=== PATIENT | female | born 1950 | race Caucasian/White ===

== ENCOUNTER 2017-06-22 17:17 | Inpatient (IN) | payer MEDICARE ==
[~2017-06-22] VITALS: Ht 152.4 cm; Wt 82.5 kg
[~2017-06-22 17:17] MED LIST: ATIVAN0.5 MG PO; CLEOCIN HCL300 MG PO; ELAVIL25 MG PO; GLIMEPIRIDE4 MG PO; GLUCOPHAGE1000 MG PO; GLUCOPHAGE500 MG PO; HYDROCODONE-APA1 TAB PO; LANTUS INSULIN10 ML SC; LEVAQUIN500 MG PO; NASONEX NASAL S17 GM NS; NEURONTIN800 MG PO; NICODERM C1 PATCH .1 TRANSDERM; PHENERGAN25 M1 PO; PREDNISONE20 MG PO; PROVENTIL HFA6.7 GM INH; REQUIP0.5 MG PO; TESSALON PERLE100 MG PO; VENTOLIN HFA18 GM INH; ZESTRIL20 MG PO
[2017-06-22 18:20] LABS: APPEARANCE HAZY (CLEAR); BILIRUBIN NEGATIVE (NEGATIVE); COLOR STRAW (YELLOW); GLUCOSE 1000 mg/dL (NEGATIVE); KETONE MODERATE mg/dL (NEGATIVE); LEUKOCYTE ESTERASE NEGATIVE (NEGATIVE); NITRITE NEGATIVE (NEGATIVE); PROTEIN 1+ mg/dL (NEGATIVE); SPECIFIC GRAVITY 1.015 (1.005-1.020); UROBILINOGEN NORMAL (NORMAL)
[2017-06-22 18:24] LABS: AMORPHOUS SEDIMENT >1+ /lpf (NONE SEEN); BACTERIA FEW /hpf (NONE SEEN); EPITHELIAL CELLS RARE /hpf (0-5); RED CELLS - URINE RARE /hpf (0-5); WHITE CELLS - URINE RARE /hpf (0-5)
[2017-06-22 18:44] LABS: BASOPHILS 0 % (0-2); EOSINOPHILS 0 % (0-7); HEMATOCRIT 37.3 % (36.0-48.0); HEMOGLOBIN 12.6 g/dL (12-16); IMMATURE GRANULOCYTES 0.2 % (0-5); LYMPHOCYTES 10.1 % (15-50); MCH 30.1 pg (26.0-34.0); MCHC 33.8 g/dL (31.0-37.0); MEAN PLATELET VOLUME 10.6 fL (7.4-10.4); MONOCYTES 2.8 % (2-11); NEUTROPHILS 86.9 % (40-80); PLATELET COUNT 167 10x3/uL (130-400); RBC 4.19 10x6/uL (4.00-5.40); RDW 13.1 % (11.5-14.5); WBC 10.1 10x3/uL (4.8-10.8)
[2017-06-22 19:07] LABS: ALBUMIN 1.8 g/dL (3.4-5.0); ALKALINE PHOSPHATASE 78 U/L (46-116); ALT (SGPT) 10 U/L (10-68); AMYLASE - SERUM 22 U/L (25-115); CARBON DIOXIDE 15.6 mmol/L (21.0-32.0); CHLORIDE - SERUM 94 mmol/L (98-107); CKMB 0.9 U/L (0.0-3.6); CREATINE KINASE 45 UL (21-215); CREATININE - SERUM 1.6 mg/dL (0.6-1.3); LIPASE 134 U/L (73-393); MAGNESIUM - SERUM 1.4 mg/dL (1.8-2.4); POTASSIUM - SERUM 4.2 mmol/L (3.5-5.1); PROTEIN - SERUM 3.9 g/dL (6.4-8.2); SODIUM 127 mmol/L (136-145); TROPONIN-I 0.027 ng/mL (0.000-0.060); UREA NITROGEN 64 mg/dL (7-18); eGFR NON AFRICAN AMERICAN 34 mL/min (90-120)
[2017-06-22 19:08] LABS: CALC OSMOLALITY 310 mosm/kg (275-300)
[2017-06-22 19:10] LABS: GLUCOSE 777 mg/dL (74-106)
[2017-06-22 21:30] VITALS: BP 115/60
--- NOTE | 2017-06-22 21:38 | NUR ---
2138: FSBS reading >HIGH. Serum glucose ordered. Insulin gtt titrated as per DKA protocols. NS from ER infusing at 200 cc/hr changed to 125 cc/hr at this time.
[2017-06-22 21:41] VITALS: BP 115/60; BMI 34.8
[2017-06-22 22:00] VITALS: BP 92/44
[2017-06-22 22:45] LABS: ALKALINE PHOSPHATASE 111 U/L (46-116); BILIRUBIN - TOTAL 0.48 mg/dL (0.2-1.3); CHLORIDE - SERUM 87 mmol/L (98-107); CREATINE KINASE 53 UL (21-215); PHOSPHOROUS 4.7 mg/dL (2.5-4.9); SODIUM 121 mmol/L (136-145); UREA NITROGEN 74 mg/dL (7-18)
[2017-06-22 22:50] VITALS: BP 115/60
[2017-06-22 22:52] LABS: CALC OSMOLALITY 294 mosm/kg (275-300); CARBON DIOXIDE 21.7 mmol/L (21.0-32.0); CREATININE - SERUM 2.2 mg/dL (0.6-1.3); GLUCOSE 616 mg/dL (74-106); MAGNESIUM - SERUM 2.7 mg/dL (1.8-2.4); eGFR NON AFRICAN AMERICAN 24 mL/min (90-120)
[2017-06-22 22:53] LABS: ALBUMIN 2.6 g/dL (3.4-5.0); ALT (SGPT) 15 U/L (10-68); CALCIUM 8.2 mg/dL (8.5-10.1); PROTEIN - SERUM 6.1 g/dL (6.4-8.2); TROPONIN-I < 0.017 ng/mL (0.000-0.060)
[2017-06-22 23:00] VITALS: BP 90/47
--- NOTE | 2017-06-22 23:20 | NUR ---
PT ARRIVED VIA BED WITH ER STAFF. LETHARGIC AND DISORIENTED. UNABLE TO FOLLOW COMMNANDS OR ANSWER QUESTIONS. REPEATS THE WORD "YEAH" RANDOMLY. S1S2 HEARD, SINUS RHYTHM ON MONITOR WITH OCCASIONAL PAC. PERIPHERAL PULSES PRESENT. LUNG SOUNDS DIMINISHED, RESPIRATIONS UNLABORED AT THIS TIME. SPO2 96, 3L O2 VIA NC. BOWEL SOUNDS ACTIVE. GOVEA CATH INTACT WITH YELLOW URINE PRESENT. STANLEY CARE DONE AT THIS TIME WITH PARTIAL LINEN CHANGE. INSULING GTT INFUSING @ 4UNITS UPON ARRIVAL, WILL TITRATE ACCORDING TO DKA PROTOCOL. PT PULLING AT LINES THAT ARE MEDICALLY NECESSARY, RT WRIST RESTRAINT IN USE PER ORDER. ROOM VISIBLE FROM NURSES STATION. BED ALARM ON. WILL CONTINUE TO MONITOR.
--- NOTE | 2017-06-22 23:26 | NUR ---
PT UNRESPONSIVE, DOES NOT AROUSE TO VOICE OR PAINFUL STIMULI. HR 58, SBP 80. JUNCTIONAL RHYTHM ON MONITOR. NOTIFIED ER PHYSICIAN. HEAD CT ORDERED. WILL CONTINUE TO TITRATE INSULIN GTT PER DKA PROTOCOL.
[2017-06-23] VITALS (38 sets, daily range): BP systolic 75–158; BP diastolic 40–82
--- NOTE | 2017-06-23 01:12 | NUR ---
DR. BEL LEONARDO.
[2017-06-23 02:41] LABS: CKMB 1.2 U/L (0.0-3.6); CREATINE KINASE 54 UL (21-215); GLUCOSE 203 mg/dL (74-106); POTASSIUM - SERUM 4.1 mmol/L (3.5-5.1); TROPONIN-I < 0.017 ng/mL (0.000-0.060)
[2017-06-23 03:06] LABS: ALBUMIN 2.6 g/dL (3.4-5.0); CALCIUM 8.7 mg/dL (8.5-10.1)
--- NOTE | 2017-06-23 03:30 | NUR ---
PT REMAINS UNRESPONSIVE, WITH OCCASIONAL MOVEMENT X4 EXTREMITIES AGAINST GRAVITY BUT NOT ON COMMAND. VSS, LEVOPHED GTT INFUSING. INSULIN GTT INFUSING, BS CURRENTLY TRENDING DOWN. PT REPOSITIONED IN BED. NO S/S OF PAIN AT THIS TIME. ROOM VISIBLE FROM NURSES STATION. BED ALARM ON. WILL CONTINUE TO MONITOR.
--- NOTE | 2017-06-23 05:30 | NUR ---
REC'D CALLBACK FROM ISATU STAPLES REC'D.
--- NOTE | 2017-06-23 05:52 | NUR ---
PT AROUSING, BEGINNING TO TALK. ANSWERS QUESTIONS INCONSISTANTLY. ORIENTED TO PERSON AND PLACE. COOPERATIVE AND FOLLOWING COMMANDS. VSS, WEANING OFF VASOPRESSORS AND TITRATING INSULIN GTT. NO C/O PAIN. ROOM VISIBLE FROM NURSES STATION. BED ALARM ON. CALL LIGHT WITHIN PT REACH. CPOC.
--- NOTE | 2017-06-23 07:31 | NUR ---
SPOKE WITH DR. YOST FOR CONSULT.
[2017-06-23 08:43] LABS: BASOPHILS 0.1 % (0-2); EOSINOPHILS 0 % (0-7); IMMATURE GRANULOCYTES 0.2 % (0-5); LYMPHOCYTES 12.6 % (15-50); MCH 30.5 pg (26.0-34.0); MCHC 35.7 g/dL (31.0-37.0); MEAN PLATELET VOLUME 10.4 fL (7.4-10.4); MONOCYTES 12.7 % (2-11); NEUTROPHILS 74.4 % (40-80); PLATELET COUNT 169 10x3/uL (130-400); RDW 13.1 % (11.5-14.5)
[2017-06-23 08:52] LABS: WBC 13.2 10x3/uL (4.8-10.8)
[2017-06-23 08:53] LABS: HEMATOCRIT 44.8 % (36.0-48.0); MCV 85.3 fL (80.0-100.0); RBC 5.25 10x6/uL (4.00-5.40)
[2017-06-23 09:13] LABS: CREATINE KINASE 70 UL (21-215)
[2017-06-23 09:18] LABS: TROPONIN-I < 0.017 ng/mL (0.000-0.060)
[2017-06-23 10:40] LABS: ANION GAP 19.6 mmol/L (8-16); CALCIUM 8.1 mg/dL (8.5-10.1); CARBON DIOXIDE 19.9 mmol/L (21.0-32.0); CREATININE - SERUM 1.3 mg/dL (0.6-1.3); MAGNESIUM - SERUM 2.4 mg/dL (1.8-2.4); PHOSPHOROUS 3.2 mg/dL (2.5-4.9); POTASSIUM - SERUM 5.5 mmol/L (3.5-5.1)
--- NOTE | 2017-06-23 12:15 | NUR ---
[employer]IONAL ACCOUNT DIRECTOR PAGED THROUGH ANSWERING SERVICE FOR CONSULT.
--- NOTE | 2017-06-23 14:40 | NUR ---
REMAINS ASLEEP. NO NEEDS.
--- NOTE | 2017-06-23 15:28 | NUR ---
PT'S DAUGHTER HERE TO VISIT. STATES HER MOTHER HAS A HISTORY OF NOT TAKING HER MEDICATIONS DIRECTED.
--- NOTE | 2017-06-23 16:00 | NUR ---
HAIR SHAMPOOED BATH GIVEN. LINENS CHANGED.
--- NOTE | 2017-06-23 19:30 | NUR ---
RECEIVED CARE OF PT, ASSESSMENT PER FLOWSHEET. PT DISORIENTED TO TIME, ON 3L NC, BREATH SOUNDS DIMINISHED IN BASES, PPP, HR SR WITH FREQUENT PAC'S AT 90 ON CM, GOVEA CATH PATENT AND DRAINING YELLOW URINE, ASSISTED PT TO COMFORTABLE POSITION, DENIES ANY OTHER NEEDS, WILL MONITOR.
--- NOTE | 2017-06-23 20:53 | NUR ---
PT C/O NAUSEA, PRN 4MG ZOFRAN ADMINISTERED VIA SIVP PER MD ORDER, WILL MONITOR FOR DESIRED EFFECT.
--- NOTE | 2017-06-23 21:30 | NUR ---
NO VISITORS PRESENT AT THIS TIME, ASSISTED PT TO COMFORTABLE POSITION, VSS.
--- NOTE | 2017-06-23 23:15 | NUR ---
REASSESSMENT PER FLOWSHEET, NO ACUTE CHANGES NOTED AT THIS TIME. HR SR WITH FREQUENT PAC'S ON CM, BED LOW, CALL LIGHT IN REACH.
[2017-06-24] VITALS (12 sets, daily range): BP systolic 105–167; BP diastolic 58–93; Ht 152.4 cm; Wt 82.5 kg
--- NOTE | 2017-06-24 01:52 | NUR ---
PT RESTING IN BED WITH EYES CLOSED, BREATHING EVEN AND UNLABORED, VSS.
--- NOTE | 2017-06-24 03:30 | NUR ---
REASSESSMENT PER FLOWSHEET, PT CONTINUES TO BE DISORIENTED TO TIME, HR SR WITH PACS ON CM, VSS, POSITIONED FOR COMFORT.
--- NOTE | 2017-06-24 03:30 | NUR ---
PT C/O NAUSEA, PRN ZOFRAN 4MG ADMINISTERED PER REQUEST VIA SIVP.
[2017-06-24 03:33] LABS: BASOPHILS 0.1 % (0-2); EOSINOPHILS 0 % (0-7); HEMATOCRIT 41.6 % (36.0-48.0); HEMOGLOBIN 14.1 g/dL (12-16); IMMATURE GRANULOCYTES 0.2 % (0-5); MCH 30.3 pg (26.0-34.0); MCHC 33.9 g/dL (31.0-37.0); MEAN PLATELET VOLUME 9.9 fL (7.4-10.4); MONOCYTES 10.2 % (2-11); NEUTROPHILS 73.5 % (40-80); PLATELET COUNT 184 10x3/uL (130-400); RBC 4.66 10x6/uL (4.00-5.40); RDW 13.4 % (11.5-14.5)
[2017-06-24 03:36] LABS: MCV 89.3 fL (80.0-100.0); WBC 8.9 10x3/uL (4.8-10.8)
[2017-06-24 03:59] LABS: ALBUMIN 2.2 g/dL (3.4-5.0); ANION GAP 11.2 mmol/L (8-16); BILIRUBIN - TOTAL 0.33 mg/dL (0.2-1.3); CALCIUM 7.8 mg/dL (8.5-10.1); MAGNESIUM - SERUM 2.1 mg/dL (1.8-2.4); PHOSPHOROUS 2.3 mg/dL (2.5-4.9); POTASSIUM - SERUM 4.2 mmol/L (3.5-5.1); PROTEIN - SERUM 5.7 g/dL (6.4-8.2); THYROID STIMULATING HORMONE 0.48 uIU/mL (0.36-3.74)
[2017-06-24 06:14] LABS: PROTEIN - URINE 48.9 mg/dL (0.0-11.9)
--- NOTE | 2017-06-24 06:14 | NUR ---
NO VISITORS PRESENT AT THIS TIME, PT DOING INCENTIVE SPIROMETRY INDEPENDENTLY, VSS, CALL LIGHT IN REACH.
--- NOTE | 2017-06-24 07:30 | NUR ---
SHIFT REPORT RECEIVED. ASSESSMENT COMPLETE. SEE FLOWSHEET FOR DETAILS. PT AWAKE, C/O HEADACHE AND PAIN IN UPPER ABDOMEN. SAYS SHE DOESN'T NORMALLY HAVE HEADACHES WHEN ASKED, AND SAYS LAST BOWEL MOVEMENT WAS YESTERDAY.
--- NOTE | 2017-06-24 10:43 | NUR ---
PT GIVEN BED BATH. GOVEA CARE PROVIDED. HAIR DETANGLED AND BRAIDED. CLEAN LINENS PLACED ON BED. CLEAN GOWN PLACED ON PATIENT. IS NOW UP IN CHAIR AT BEDSIDE WITH MINIMAL TRANSFER ASSIST.
--- NOTE | 2017-06-24 11:01 | NUR ---
WHEN CLEANING UP PATIENT AND HER ROOM FOUND A GOLD RING WITH 4 STONES IN THE SETTING ON HER BEDSIDE STAND. STONES WERE: PURPLE, YELLOW, PINK AND BLUE. ALSO A PAIR OF LIGHTENING BOLT EARRINGS AND ONE BACK. PLACED IN A CLEAR BAGGIE WITH PATIENT LABEL AND PUT IN CASSETTE.
--- NOTE | 2017-06-24 11:46 | NUR ---
GOVEA REMOVED PER DR REYNAGA INSTRUCTIONS, TIP INTACT. NORMS PROVIDED.
--- NOTE | 2017-06-24 11:53 | NUR ---
FOLLOW UP APPOINTMENT MADE WITH DR ESQUIVEL ON JUL 01 AT 2:45PM
--- NOTE | 2017-06-24 12:40 | NUR ---
PAGED DR STAPLES ABOUT DISCHARGE MEDICATIONS. PT HAD DUPLICATE METFORMIN ORDER, INSULIN ORDER AND AMARYL ORDER. ASKED FOR CLARIFICATION ON WHICH MEDICATIONS PT SHOULD CONTINUE AND WHAT TO HOLD SINCE MULTIPLE ANTI-DIABETICS ON JAN. SHE ASKED FOR THE AMARYL TO BE STOPPED, D/C THE DUPLICATE METFORMIN AND TO CONTINUE ITS USE FOR HOME AND TO CONTINUE LANTUS.
--- NOTE | 2017-06-24 12:55 | NUR ---
SPOKE WITH PHARMACIST AT [facility] TO CLARIFY ANTI-DIABETIC MEDICATIONS. SEKOU WITH CASE MANAGEMENT HAD CALLED HER TO GO OVER THE PATIENT'S MEDICATIONS TO SEE WHEN LAST FILLED AND COST SINCE PT DAUGHTER SAYS PT IS PICKING THEM UP DUE TO COST. PT HAD ORDER FOR 45 UNITS LANTUS BID THAT WAS NEVER FILLED. CHANGED PRESCRIPTION TO 20UNITS BID FOR A ONE MONTH SUPPLY UNTIL PATIENT SEES DR ESQUIVEL AT FOLLOW UP. ALSO A ONE MONTH SUPPLY OF METFORMIN 1000MG BID SINCE PATIENT HAS NOT FILLED HER PRESCRIPTION SINCE 2015. CASE MANAGEMENT IN PATIENT ROOM AT THIS TIME SPEAKING WITH HER ABOUT HER MEDICATIONS.
--- NOTE | 2017-06-24 13:15 | NUR ---
* Is the patient Alert and Oriented? Yes 0 * How many steps to enter\exit or inside your home? 0 0 * PCP Dr. Chauhan 0 * Pharmacy [facility] in [place] 0 * Preadmission Environment Home Alone 0 * ADLs Independent 0 * Equipment Cane Rolling Walker 0 * List name and contact numbers for known caregivers / representatives who currently or will assist patient after discharge: Daughter - Ophelia [phone] or [phone] 0 * Additional services required to return to the preadmission environment? Yes 0 * Can the patient safely return to the preadmission environment? Yes 0 * Has this patient been hospitalized within the prior 30 days at any hospital? No Patient Name: MATTY DRAKE Admission Status: ER Accout number: [id number] Admission Date: 06-22-2017 : 1950 Admission Diagnosis: Attending: RAHEEM Current LOS: 2 Anticipated DC Date: 06-24-2017 Planned Disposition: Home with Home Health Primary Insurance: MEDICARE A & B Discharge Planning Comments: CM met with patient to assess dc plans/needs. Patient states she lives alone & is independent with all ADL's & IADL's. She states she uses a walker or cane at times. She states she drives and takes care of herself. She states her daughter, Ophelia, will drive her home. Discussed medication compliance. I called and spoke with pharmacist at [facility]. They report patient has a Part D plan to cover her meds. Pharmacist states she last had DM meds filled in early January (30 day supply), but gets her narcotic filled monthly. Pharmacist states her DM medications are between $3-$5 each per month with the exception of Lantus, which is around $45/month. She states she can afford her medications but unable to tell me why she hasn't been filling them. She verbalizes understanding of taking medications as prescribed. Discussed home health services with patient. She is agreeable. Reviewed list of home health agencies. JOANNE signed for [employer]. Referral faxed. Anticipate dc this afternoon. Donkey Engine Firer/Fireman: Hortensia Medina
--- NOTE | 2017-06-24 14:15 | NUR ---
IV REMOVED FROM RIGHT HAND. TIP INTACT. PT DAUGHTER ASSISTING WITH DRESSING. PT HAS BEEN UP TO URINATE SINCE GOVEA REMOVED.
--- NOTE | 2017-06-24 15:15 | NUR ---
DISCHARGE TEACHING PROVIDED TO PATIENT AND TO DAUGHTER LAURA. INSTRUCTED TO STOP TAKING AMARYL AND CHILD ADOLESCENT CARE LANTUS AND METFORMIN FROM [facility]. [facility] WILL BE CONTACTING THEM TO SET UP A VISIT. PT ESCORTED VIA WHEELCHAIR TO CAR. ALL BELONGINGS WERE GIVEN TO PATIENT, INCLUDING HER RING AND EARRINGS. SHE HAD THEM ON HER BODY BEFORE LEAVING HER ROOM.
--- NOTE | 2017-07-05 09:41 | CN ---
PATIENT NAME:MATTY LORENZO MEDICAL RECORD: [id number] : [birth year] LOCATION:[facility] ADMIT DATE: 06/22/17 ACCOUNT: [id number] CONSULTING PHYSICIAN: LENNY YOST MD REFERRING PHYSICIAN: MICHELLE STAPLES MD DATE OF CONSULTATION: 06/23/2017 Cardiology Consultation ADMITTING DIAGNOSIS: Dysrhythmia. HISTORY OF PRESENT ILLNESS: Mrs. Lorenzo presents with hypotension of unknown etiology on 2 pressors. She is having bradyarrhythmias as well as frequent PACs and PVCs, having episodes of bradycardia as well as junctional. She denies any chest pain or chest discomfort. Her EKG is with no ST-T abnormalities. She denies any cardiac history; however, the patient is confused. Her systolic blood pressure was in the 60s and 70s, now her systolic blood pressure is in the 130s on the pressors. Her troponin is normal as far as electrolytes go. She has not had any significant electrolyte abnormalities at this time. PHYSICAL EXAMINATION: GENERAL APPEARANCE: Well-nourished, well-developed, appears stated age. Level of distress, comfortable. PSYCHIATRIC: Mental status, alert, normal affect. Orientation, oriented to time, place and person. EYES: Lids and conjunctiva, noninjected. No discharge, no pallor. ENT: Lips, teeth, gums, normal dentition. Oropharynx, no cyanosis, no pallor. NECK: Carotid arteries, bilateral normal upstroke, no bruits, no thrills. JUGULAR VEINS: No jugular venous pressure or distention. CERVICAL LYMPH NODES: Nontender, nonenlarged. THYROID: Not enlarged. Nontender. No nodules. LUNGS: Respiratory effort, unlabored. CHEST: Normal curvature. No thoracic deformity. No chest wall tenderness. Percussion, resonant. Auscultation, clear. No wheezes, no rales, no rhonchi. CARDIOVASCULAR: Precordial exam, nondisplaced. No heaves or pericardial thrills. Rate and rhythm, regular. Heart sounds, normal S1, normal S2. No S3, no gallop, no rub. Systolic murmur, not heard. Diastolic murmur, not heard. EXTREMITIES: No cyanosis, no edema. Peripheral pulses, full and equal in all extremities, except as noted. No bruits appreciated. ABDOMEN: Soft, nondistended. Normal aorta. No bruit. Nontender. No masses. Liver, nontender, no hepatomegaly. Spleen, nontender, no splenomegaly. MUSCULOSKELETAL: No joint tenderness. No joint swelling. No erythema. NEUROLOGICAL: Normal gait, normal strength, normal tone. SKIN: Warm and dry. REVIEW OF SYSTEMS: The patient reports easy bruising but reports no swollen glands. The patient reports no fever, no night sweats, no significant weight gain, no significant weight loss. No significant exercise tolerance. The patient reports no dry eyes, no irritation, no vision change. Patient reports no difficulty hearing and no ear pain. Patient reports no frequent nose bleeds or nose and sinus problems. Patient reports on arm pain on exertion. No shortness of breath while lying down. No history of heart murmur. Patient reports no cough, no wheezing or coughing up blood. Patient reports no abdominal pain, no vomiting. Normal appetite. No diarrhea and not vomiting blood. No nausea and no constipation. Patient reports no incontinence. No CONSULT REPORT [id number] MATTY LORENZO difficulty urinating. No hematuria. No increased frequency. Patient reports no muscle aches. No weakness, no arthralgias, no back pain. No swelling of the extremities. Patient reports no abnormal mole, no jaundice, no rashes. Reports no loss of consciousness. No weakness and no numbness. No seizures, dizziness, or headaches. The patient reports no depression, no sleep disturbance, feeling safe in a relationship and no alcohol abuse. Patient reports on fatigue. Reports no runny nose or sinus pressure. No itching, no hives, and no frequent sneezing. OVERALL IMPRESSION: Dysrhythmia is really unknown etiology. Her hypotension is unknown etiology, possibly sepsis as her white count is high. The etiology or source of the sepsis is unknown. At this time, it is most likely reactionary arrhythmias to her physiologic demand. We will continue to watch for supportive care. If she does not have any further bradycardia, does not need a temporary or permanent pacing at this time, is on no medications currently that would explain the bradyarrhythmias and at home, she was on no medications that would cause the arrhythmias. We will get an echocardiogram for overall cardiac evaluation. Further care depends upon further dysrhythmias and her response to the pressors. TRANSINT:[id number] Voice Confirmation ID: [id number] DOCUMENT ID: [id number] LENNY YOST MD at 0941 CC: [id number] DICTATION DATE: 06/23/17923 STRETCHING MACHINE TENDER FRAME: 06/23/17 0951 DIS IN 06/24/17 [place] [place] [address]
--- NOTE | 2017-07-05 09:41 | EC ---
PATIENT:MATTY DRAKE DATE OF SERVICE: 06/22/17 SEX: F MEDICAL RECORD: [id number] DATE OF : [birth year] LOCATION:[facility] AGE OF PATIENT: 66 ADMISSION DATE: 06/22/17 REFERRING PHYSICIAN: INTERPRETING PHYSICIAN: LENNY SARMIENTO MD ECHOCARDIOGRAM REPORT ECHO CHARGES 4 ECHO COMPLETE CLINICAL DIAGNOSIS: DYSARRHYTHMIA ECHOCARDIOGRAPHIC MEASUREMENTS (adult normal given) AC root (d.<3.7cm) 3.3 cm LV Septum d (<1.2 cm> 1.4 cm Valve Excursion 1.9 cm LV Septum (systole) 1.5 cm Left Atria (s.<4.0cm> 3.7 cm LVPW d(<1.2cm) 1.2 cm RV (d.<2.3cm) 2.9 cm LVPW (sytole) 1.5 cm LV diastole(<5.6CM) 4.9 cm MV E-F(>70mm/sec) cm LV systole 3.6 cm LVOT Diameter 1.9 cm MV exc.(>10mm) cm Est.ejection fraction (50-75%) % Pericardial Effusion N DOPPLER: LVIT cm/sec A 93.0 cm/sec E 75.0 cm/sec LA cm/sec RVSP 19 mmHg LVOT 123 cm/sec AOP1/2T m/s Asc. Ao 164 cm/sec RVOT cm/sec RA cm/sec PA cm/sec AV Gradient Peak 10.75mmHg AV Mean 5.76 mmHg AV Area 2.0 cm MV Gradient Peak 4.02 mmHg MV Mean 1.53 mmHg MV Area cm COMMENTS: Marketing Production Manager: Jose Alfredo DOWNING Supervisor Bleach Plant: 1 Dr. Sarmiento TAPE# PACS DATE OF SERVICE: 06/23/2017 Echocardiogram FINDINGS: 1. Left ventricular chamber size is within normal limits. Left ventricular systolic function is normal. Overall ejection fraction estimated at 60%. 2. Left atrium, right atrium, and right ventricle chamber sizes are within normal limits. 3. Valvular structures have normal structure and motion. ECHOCARDIOGRAM REPORT [id number] MATTY DRAKE 4. Doppler interrogation only reveals trace aortic insufficiency, trace tricuspid regurgitation, neither of which are significant. and pulmonary systolic pressure is normal estimated at 19 mmHg. 5. No evidence of pericardial effusion or left ventricular thrombus. TRANSINT:[id number] Voice Confirmation ID: [id number] DOCUMENT ID: [id number] 06/28/2017 Edited to correct date of service, [email or web address]. LENNY SARMIENTO MD at 0941 CC: [id number] DICTATION DATE: 06/24/17 1159 SMOKING PIPE MOUNTER: 06/24/17 1355 DIS IN 06/24/17 [place] [id number]
== END 2017-06-24 14:50 | disposition home health service (06) | DRG 637 ==
LOC: D.ER 17:17 → D.CVICU 20:00
PROVIDERS: Family Medicine; Internal Medicine Pulmonary Disease; ADMIT Family Medicine
DX: E13.10 Other specified diabetes mellitus with ketoacidosis without coma (principal); G93.41 Metabolic encephalopathy; N17.9 Acute kidney failure, unspecified; J44.1 Chronic obstructive pulmonary disease with (acute) exacerbation; J98.11 Atelectasis; E87.1 Hypo-osmolality and hyponatremia; Z79.4 Long term (current) use of insulin; E11.22 Type 2 diabetes mellitus with diabetic chronic kidney disease; I12.9 Hypertensive chronic kidney disease with stage 1 through stage 4 chronic kidney disease, or unspecified chronic kidney disease; N18.9 Chronic kidney disease, unspecified; G25.81 Restless legs syndrome; E87.5 Hyperkalemia; I49.9 Cardiac arrhythmia, unspecified; G47.33 Obstructive sleep apnea (adult) (pediatric); J31.0 Chronic rhinitis; G89.29 Other chronic pain; E11.40 Type 2 diabetes mellitus with diabetic neuropathy, unspecified; I95.9 Hypotension, unspecified

== ENCOUNTER 2017-07-03 04:06 | Inpatient (IN) | payer MEDICARE ==
[~2017-07-03] VITALS: Ht 152.4 cm; Wt 81.8 kg
[2017-07-03 05:04] LABS: APPEARANCE SLT CLOUDY (CLEAR); BILIRUBIN NEGATIVE (NEGATIVE); COLOR YELLOW (YELLOW); GLUCOSE NEGATIVE (NEGATIVE); KETONE NEGATIVE (NEGATIVE); LEUKOCYTE ESTERASE 1+ (NEGATIVE); NITRITE NEGATIVE (NEGATIVE); PROTEIN 1+ mg/dL (NEGATIVE); SPECIFIC GRAVITY 1.015 (1.005-1.020); UROBILINOGEN NORMAL (NORMAL)
[2017-07-03 05:08] LABS: BACTERIA FEW /hpf (NONE SEEN); EPITHELIAL CELLS 0-5 /hpf (0-5); MUCUS <1+ /lpf (NONE SEEN); RED CELLS - URINE 0-5 /hpf (0-5); YEAST OCC /hpf (NONE SEEN)
[2017-07-03 05:53] LABS: BASOPHILS 0.1 % (0-2); EOSINOPHILS 0 % (0-7); HEMATOCRIT 44.6 % (36.0-48.0); HEMOGLOBIN 13.9 g/dL (12-16); IMMATURE GRANULOCYTES 1.8 % (0-5); LYMPHOCYTES 13.5 % (15-50); MCH 29.8 pg (26.0-34.0); MCHC 31.2 g/dL (31.0-37.0); MCV 95.5 fL (80.0-100.0); MEAN PLATELET VOLUME 9.5 fL (7.4-10.4); MONOCYTES 3.9 % (2-11); NEUTROPHILS 80.7 % (40-80); RBC 4.67 10x6/uL (4.00-5.40); RDW 13.9 % (11.5-14.5)
[2017-07-03 05:56] LABS: PLATELET COUNT 302 10x3/uL (130-400)
[2017-07-03 06:20] LABS: ALBUMIN 2.8 g/dL (3.4-5.0); ANION GAP 14.2 mmol/L (8-16); BILIRUBIN - TOTAL 0.14 mg/dL (0.2-1.3); CALCIUM 8.5 mg/dL (8.5-10.1); CARBON DIOXIDE 24.6 mmol/L (21.0-32.0); CREATININE - SERUM 1.1 mg/dL (0.6-1.3); POTASSIUM - SERUM 4.8 mmol/L (3.5-5.1)
[2017-07-03] MEDS ORDERED: ZOFRAN ODT4 MG/UDTAB PO (13:22)
[2017-07-03] MEDS ORDERED: LANTUS INSULIN10 ML SC (13:23)
[2017-07-03 13:28] VITALS: BP 127/62; Ht 152.4 cm; Wt 81.8 kg
--- NOTE | 2017-07-03 13:38 | NUR ---
ARRIVED FROM ER VIA STRETCHER. WARM AND DRY. IV GOING AT 100 CC. ASSESSMENT DONE. NO DISTRESS AT PRESENT. WILL CONTINUE TO MONITOR.
[2017-07-03 16:16] VITALS: BP 139/72
--- NOTE | 2017-07-03 17:42 | NUR ---
PT'S BS AT 1700, 45. 2 CUPS OJ AND 1 AMP D50 IVP. BS AT 1745, 87. WILL CONTINUE TO MONITOR
--- NOTE | 2017-07-03 18:44 | NUR ---
BS 139
[2017-07-03 19:00] VITALS: BP 108/59
--- NOTE | 2017-07-03 19:00 | NUR ---
REPORT RECIEVED, INITIAL ASSESSMENT COMPLETE, PLEASE SEE FLOW SHEETS FOR DETAILS. DENIES ANY PAIN/NEEDS ATT. BED LOW AND LOCKED, SITTING ON SIDE OF BED. CALL LIGHT IN REACH. WILL CPOC.
--- NOTE | 2017-07-03 22:42 | NUR ---
C/O BACK, KNEE, AND LEG PAIN, NO PAIN MEDS ORDERED. PAGED LYNNE WREN.
--- NOTE | 2017-07-03 22:47 | NUR ---
RECIEVED CALLBACK FROM LYNNE WREN, NEW ORDERS RECIVED.
[2017-07-04] VITALS: BP 140/74
[2017-07-04 04:00] VITALS: BP 116/59
--- NOTE | 2017-07-04 04:33 | NUR ---
SITTING UP IN BED, BED LOW AND LOCKED, CALL LIGHT IN REACH. DENIES NEEDS ATT. WILL CPOC.
[2017-07-04 05:53] LABS: BASOPHILS 0.1 % (0-2); EOSINOPHILS 0 % (0-7); HEMATOCRIT 42.1 % (36.0-48.0); HEMOGLOBIN 13.3 g/dL (12-16); IMMATURE GRANULOCYTES 0.8 % (0-5); LYMPHOCYTES 26.3 % (15-50); MCHC 31.6 g/dL (31.0-37.0); MEAN PLATELET VOLUME 9.8 fL (7.4-10.4); MONOCYTES 5.9 % (2-11); NEUTROPHILS 66.9 % (40-80); PLATELET COUNT 279 10x3/uL (130-400); RBC 4.43 10x6/uL (4.00-5.40); RDW 13.8 % (11.5-14.5)
[2017-07-04 05:59] LABS: WBC 13.4 10x3/uL (4.8-10.8)
[2017-07-04 06:16] LABS: ALBUMIN 2.6 g/dL (3.4-5.0); ANION GAP 12.8 mmol/L (8-16); BILIRUBIN - TOTAL 0.14 mg/dL (0.2-1.3); CALCIUM 8.3 mg/dL (8.5-10.1); CARBON DIOXIDE 27.4 mmol/L (21.0-32.0); CREATININE - SERUM 0.9 mg/dL (0.6-1.3); POTASSIUM - SERUM 5.2 mmol/L (3.5-5.1)
--- NOTE | 2017-07-04 07:59 | NUR ---
AM ROUNDS - PT IS AWAKE AND SITTING ON THE SIDE OF THE BED. NON SKID SOCKS ON. NO YELLOW BAND. IV TO RIGHT WRTIST, D10 AT 100. BED AT LOWEST POSITION. CALL SALAZAR IN USE/REACH. SIDE RAILS UP X2. WILL CONTINUE TO MONITOR
[2017-07-04 08:23] VITALS: BP 128/64
[2017-07-04 11:36] VITALS: BP 140/52
[2017-07-04 15:49] VITALS: BP 142/78
--- NOTE | 2017-07-04 16:27 | NUR ---
STOPPED D10 PER ORDER. WILL CHECK BS IN APPROX 30MIN.
[2017-07-04] MEDS ORDERED: CIPRO500 MG PO (16:37)
[2017-07-04] MEDS ORDERED: FLORAJEN3 CAPS460 MG PO (16:38)
--- NOTE | 2017-07-04 17:00 | NUR ---
Patient Name: MATTY DRAKE Admission Status: ER Accout number: [id number] Admission Date: 07-03-2017 : 1950 Admission Diagnosis: Attending: GILL Current LOS: 1 Anticipated DC Date: 07-04-2017 Planned Disposition: Home Primary Insurance: MEDICARE A & B Discharge Planning Comments: * Is the patient Alert and Oriented? Yes 0 * How many steps to enter\exit or inside your home? NONE 0 * PCP DR. ESQUIVEL 0 * Pharmacy [facility] IN [place] 0 * Preadmission Environment Home Alone 0 * ADLs Independent 0 * Equipment Cane Glucometer Rolling Walker 0 * Other Equipment NO MEDICAL EQUIPMENT PROVIDER PREFERENCE 0 * List name and contact numbers for known caregivers / representatives who currently or will assist patient after discharge: MANNY ARCE, 0 * Community resources currently utilized None 0 * Please name any agencies selected above. NONE 0 * Additional services required to return to the preadmission environment? No 0 * Can the patient safely return to the preadmission environment? Yes 0 * Has this patient been hospitalized within the prior 30 days at any hospital? Yes 0 CM MET WITH PT IN ROOM TO DISCUSS DISCHARGE PLANNING AND NEEDS. PT REPORTS LIVING AT HOME INDEPENDENTLY AND ALONE. PT HAS CANE, ROLLING WALKER AND GLUCOMETER. PT DID GET HER INSULIN AND WAS TAKING PRESCRIBED, SUGAR DROPPED REAL LOW. THEY HAVE CHANGED HER DOSE AND SHE IS GOING HOME TODAY. PT HAS NO OUTSIDE SERVICES ASSISTING IN THE HOME. CM DISCUSSED AVAILABILITY OF HOME HEALTH, REHAB SERVICES AND MEDICAL EQUIPMENT. PATIENT REPORTS SHE HAD [facility] BUT TOLD THEM TO NOT COME OUT ANYMORE. PT DOES NOT WANT HOME HEALTH NOW. PT DENIES DISCHARGE NEEDS. REPORTS HER DAUGHTER WILL PICK HER UP FOR DISCHARGE HOME SHORTLY. Campaign Fundraiser: Spencer Candelaria
--- NOTE | 2017-07-04 17:47 | NUR ---
CALLED AND FAXED [facility] AND NOTIFIED OF D/C. VERBAL AND WRITTEN D/C ORDER GIVEN TO PT. PT LEFT FLOOR VIA WHEELCHAIR WITH CART PUSHER. IV TO RIGHT WRITS D/C. CATH TIP INTACT. 2X2 APPLIED AND SECURED WITH TAPE. PT TOLERATED WELL. WILL D/C
== END 2017-07-04 18:00 | disposition home or self-care (01) | DRG 638 ==
LOC: D.ER 04:06 → D.M2 11:45 → OBSVTIME 11:45 → D.M2 18:03
PROVIDERS: Family Medicine; ADMIT Emergency Medicine
DX: E11.649 Type 2 diabetes mellitus with hypoglycemia without coma (principal); N39.0 Urinary tract infection, site not specified; E11.22 Type 2 diabetes mellitus with diabetic chronic kidney disease; I12.9 Hypertensive chronic kidney disease with stage 1 through stage 4 chronic kidney disease, or unspecified chronic kidney disease; N18.9 Chronic kidney disease, unspecified; J44.9 Chronic obstructive pulmonary disease, unspecified; E87.5 Hyperkalemia; K21.9 Gastro-esophageal reflux disease without esophagitis; G47.33 Obstructive sleep apnea (adult) (pediatric); G25.81 Restless legs syndrome; Z87.891 Personal history of nicotine dependence

== ENCOUNTER 2017-11-23 15:09 | Emergency (ER) | payer MEDICARE ==
[2017-07-03 13:28] VITALS: BMI 35.2
[~2017-11-23 15:09] MED LIST changes: +CIPRO500 MG PO; +FLORAJEN3 CAPS460 MG PO; +ZOFRAN ODT4 MG/UDTAB PO
[2017-11-23 16:19] LABS: BASOPHILS 0.1 % (0-2); EOSINOPHILS 0 % (0-7); HEMATOCRIT 48.5 % (36.0-48.0); HEMOGLOBIN 16.9 g/dL (12-16); IMMATURE GRANULOCYTES 0.3 % (0-5); LYMPHOCYTES 17.3 % (15-50); MCH 32.1 pg (26.0-34.0); MCHC 34.8 g/dL (31.0-37.0); MEAN PLATELET VOLUME 9.9 fL (7.4-10.4); MONOCYTES 7.6 % (2-11); NEUTROPHILS 74.7 % (40-80); PLATELET COUNT 246 10x3/uL (130-400); RBC 5.27 10x6/uL (4.00-5.40); RDW 13.2 % (11.5-14.5); WBC 13.9 10x3/uL (4.8-10.8)
[2017-11-23 16:32] LABS: KETONE - SERUM NEGATIVE (NEGATIVE)
[2017-11-23 16:33] LABS: APPEARANCE HAZY (CLEAR); BILIRUBIN NEGATIVE (NEGATIVE); COLOR YELLOW (YELLOW); GLUCOSE 1000 mg/dL (NEGATIVE); KETONE NEGATIVE (NEGATIVE); NITRITE NEGATIVE (NEGATIVE); PROTEIN 2+ mg/dL (NEGATIVE); SPECIFIC GRAVITY 1.015 (1.005-1.020); UROBILINOGEN NORMAL (NORMAL)
[2017-11-23 16:37] LABS: BACTERIA MODERATE /hpf (NONE SEEN); MUCUS <1+ /lpf (NONE SEEN); RED CELLS - URINE 0-5 /hpf (0-5); YEAST <1+ /hpf (NONE SEEN)
[2017-11-23 16:38] LABS: ALKALINE PHOSPHATASE 110 U/L (46-116); ALT (SGPT) 15 U/L (10-68); BILIRUBIN - TOTAL 0.36 mg/dL (0.2-1.3); CALCIUM 9.5 mg/dL (8.5-10.1); CARBON DIOXIDE 28.5 mmol/L (21.0-32.0); CHLORIDE - SERUM 95 mmol/L (98-107); CREATININE - SERUM 1.2 mg/dL (0.6-1.3); POTASSIUM - SERUM 4.4 mmol/L (3.5-5.1); PROTEIN - SERUM 7.2 g/dL (6.4-8.2); SODIUM 131 mmol/L (136-145); UREA NITROGEN 13 mg/dL (7-18); eGFR NON AFRICAN AMERICAN 48 mL/min (90-120)
[2017-11-23 16:43] LABS: CALC OSMOLALITY 287 mosm/kg (275-300); GLUCOSE 552 mg/dL (74-106)
== END 2017-11-23 18:38 | disposition home or self-care (01) ==
LOC: D.ER 15:09
PROVIDERS: Emergency Medicine
DX: E11.65 Type 2 diabetes mellitus with hyperglycemia (principal); Z79.4 Long term (current) use of insulin; N39.0 Urinary tract infection, site not specified; B37.3 Candidiasis of vulva and vagina; Z91.14 Patient's other noncompliance with medication regimen; J44.9 Chronic obstructive pulmonary disease, unspecified; I10 Essential (primary) hypertension

== ENCOUNTER 2017-11-30 02:02 | Inpatient (IN) | payer MEDICARE ==
[~2017-11-30] VITALS: Ht 152.4 cm; Wt 81.6 kg
--- NOTE | ~2017-11-30 | OP ---
PATIENT NAME: MATTY DRAKE MEDICAL RECORD: [id number] :54 LOCATION:[facility] ADMISSION DATE:11/30/17 SURGEON: ALEENA BERMEO MD DATE OF OPERATION: 12/02/2017 PREOPERATIVE DIAGNOSIS: Intertrochanteric hip fracture with severe hip osteoarthritis. POSTOPERATIVE DIAGNOSIS: Intertrochanteric hip fracture with severe hip osteoarthritis. PROCEDURE: A left total hip arthroplasty using the oriental orthodox modular system. SURGEON: Aleena Bermeo MD ANESTHESIA: General. INTRAOPERATIVE COMPLICATIONS: None. SUMMARY OF PATHOLOGIC FINDINGS: The patient had intertrochanteric fracture that was more at the base of the neck; however, a portion of the fracture did extend into the abductor connection, which required intraoperative fixation in addition to total hip arthroplasty. IMPLANTS USED: [place] oriental orthodox modular system, size 14 x 150 mm stem, 19 standard proximal body, a Tritanium hemispherical cluster hole shell, size 50, alpha code D, and Vitagel. OPERATIVE SUMMARY IN DETAIL: After obtaining the appropriate preoperative orthopedic surgery consent as well as anesthetic consultation, evaluation and clearance, the patient was brought to the operating room and placed on the operating table in supine position. After general laryngeal mask airway was administered, the patient was placed in a right lateral decubitus position. All pressure points were well padded to include down leg peroneal pad as well as axillary roll. The patient was held firmly to the operating table using the vacuum pack suction system. Left lower extremity and hip were then prepped and draped in routine sterile fashion. Curvilinear incision made over the greater trochanter, taken down to the level of the IT band and was split in line with fibers of the IT band to reveal gluteus medius and minimus attachment. Gluteus medius and minimus attachment were reflected anteriorly. At this point, the fracture was noted. The entire neck and femoral head with a portion of the calcar was extracted from the acetabulum. Labrectomy was followed by serial and sequential reaming to a size 49, size 50 cluster hole cup was put in with excellent fit and fill and good capture. Polyethylene was then popped into place at this point as well. Next, attention was carefully turned to the proximal femur with the small residual fracture. The femur was reamed using both flexible reamers as well as baton reamers for a size 14 x 150 oriental orthodox modular hip stem. This was put into place with good fit and fill and then proximal reaming was begun for the proximal body. This was done to a size 19 only with excellent bone stock. The size 19 trial was deployed, the 19 standard was put into place and secured using the locking screw. Trials were undertaken and it was felt that the +10-36 was the most stable. The +10-36 was gently reduced and was seen to be stable at all planes. At this point, copious irrigation was then followed by #5 Ethibond reapproximation transosseously of the superior aspect of the greater trochanter. Good fixation was achieved with OPERATIVE REPORT [id number] MATTY DRAKE. The gluteus medius and minimus were then reattached also in a transosseous fashion. The IT band was closed with #2 Ethibond. This was followed by #1 Vicryl and 2-0 Vicryl and skin jose. Intraoperative radiographs were taken that showed good position and placement of all components. Please note that before final closure, Vitagel from [employer] was utilized to enhance good healing and deter bleeding. Sterile dressings were applied. The patient was awakened and taken to recovery room in stable condition. All final needle and sponge counts were correct. TRANSINT:[id number] Voice Confirmation ID: [id number] DOCUMENT ID: [id number] JEAN-CLAUDE LOGAN, ALEENA OSULLIVAN at 1343 CC: [id number] DICTATION DATE: 12/05/17 1300 SQL BI DEVELOPER: 12/05/17 1325 ADM IN [facility] [address] [place] [address]
[2017-11-30 02:31] LABS: BASOPHILS 0.1 % (0-2); EOSINOPHILS 0 % (0-7); HEMATOCRIT 47.3 % (36.0-48.0); HEMOGLOBIN 16.2 g/dL (12-16); IMMATURE GRANULOCYTES 0.4 % (0-5); LYMPHOCYTES 5.7 % (15-50); MCH 31.9 pg (26.0-34.0); MCHC 34.2 g/dL (31.0-37.0); MCV 93.1 fL (80.0-100.0); MEAN PLATELET VOLUME 9.9 fL (7.4-10.4); MONOCYTES 5.8 % (2-11); PLATELET COUNT 276 10x3/uL (130-400); RBC 5.08 10x6/uL (4.00-5.40); RDW 13.1 % (11.5-14.5); WBC 17.6 10x3/uL (4.8-10.8)
[2017-11-30 02:40] LABS: INR 0.99 (0.85-1.17); PROTIME 12.7 SECONDS (11.6-15.0)
[2017-11-30 02:50] LABS: ALBUMIN 2.8 g/dL (3.4-5.0); ANION GAP 13.5 mmol/L (8-16); BILIRUBIN - TOTAL 0.26 mg/dL (0.2-1.3); CALCIUM 8.9 mg/dL (8.5-10.1); CREATININE - SERUM 1.2 mg/dL (0.6-1.3); POTASSIUM - SERUM 4.5 mmol/L (3.5-5.1); PROTEIN - SERUM 6.7 g/dL (6.4-8.2)
[2017-11-30 05:48] LABS: APPEARANCE CLEAR (CLEAR); BILIRUBIN NEGATIVE (NEGATIVE); COLOR YELLOW (YELLOW); GLUCOSE 1000 mg/dL (NEGATIVE); KETONE NEGATIVE (NEGATIVE); NITRITE NEGATIVE (NEGATIVE); PROTEIN 2+ mg/dL (NEGATIVE); UROBILINOGEN NORMAL (NORMAL)
[2017-11-30 05:49] LABS: BACTERIA FEW /hpf (NONE SEEN); EPITHELIAL CELLS 0-5 /hpf (0-5); RED CELLS - URINE 0-5 /hpf (0-5); WHITE CELLS - URINE NSEEN /hpf (0-5)
[2017-11-30 07:13] VITALS: BP 121/69; BMI 35.2
[2017-11-30 09:56] VITALS: BP 135/79
[2017-11-30 12:38] VITALS: BP 138/74
[2017-11-30 16:45] VITALS: BP 142/70
[2017-11-30 20:00] VITALS: BP 123/75
[2017-12-01] VITALS: BP 140/82
[2017-12-01 04:00] VITALS: BP 157/88
[2017-12-01 06:14] LABS: BASOPHILS 0.2 % (0-2); EOSINOPHILS 0 % (0-7); HEMATOCRIT 44.3 % (36.0-48.0); HEMOGLOBIN 14.8 g/dL (12-16); IMMATURE GRANULOCYTES 0.4 % (0-5); LYMPHOCYTES 17.1 % (15-50); MCH 31.2 pg (26.0-34.0); MCHC 33.4 g/dL (31.0-37.0); MCV 93.3 fL (80.0-100.0); MEAN PLATELET VOLUME 10.1 fL (7.4-10.4); MONOCYTES 6.7 % (2-11); NEUTROPHILS 75.6 % (40-80); PLATELET COUNT 236 10x3/uL (130-400); RBC 4.75 10x6/uL (4.00-5.40); RDW 13.4 % (11.5-14.5); WBC 11.1 10x3/uL (4.8-10.8)
[2017-12-01 06:42] LABS: ALBUMIN 2.2 g/dL (3.4-5.0); ANION GAP 13.6 mmol/L (8-16); BILIRUBIN - TOTAL 0.51 mg/dL (0.2-1.3); CALCIUM 8.8 mg/dL (8.5-10.1); CARBON DIOXIDE 26.5 mmol/L (21.0-32.0); CREATININE - SERUM 0.9 mg/dL (0.6-1.3); POTASSIUM - SERUM 4.1 mmol/L (3.5-5.1); PROTEIN - SERUM 6.1 g/dL (6.4-8.2)
[2017-12-01 08:44] VITALS: BP 145/85
[2017-12-01 16:36] VITALS: BP 128/67
[2017-12-01 20:00] VITALS: BP 155/86
[2017-12-02] VITALS (8 sets, daily range): BP systolic 117–165; BP diastolic 55–86; Ht 152.4 cm; Wt 81.6 kg
[2017-12-02 04:48] LABS: BASOPHILS 0.2 % (0-2); EOSINOPHILS 0 % (0-7); HEMATOCRIT 42.9 % (36.0-48.0); HEMOGLOBIN 14.2 g/dL (12-16); IMMATURE GRANULOCYTES 0.4 % (0-5); LYMPHOCYTES 17.8 % (15-50); MCH 30.9 pg (26.0-34.0); MCHC 33.1 g/dL (31.0-37.0); MCV 93.3 fL (80.0-100.0); MEAN PLATELET VOLUME 9.8 fL (7.4-10.4); MONOCYTES 7.3 % (2-11); NEUTROPHILS 74.3 % (40-80); PLATELET COUNT 224 10x3/uL (130-400); RDW 13.3 % (11.5-14.5)
[2017-12-02 05:15] LABS: ALBUMIN 2.2 g/dL (3.4-5.0); ANION GAP 12.2 mmol/L (8-16); BILIRUBIN - TOTAL 0.45 mg/dL (0.2-1.3); CALCIUM 8.8 mg/dL (8.5-10.1); CARBON DIOXIDE 27.9 mmol/L (21.0-32.0); CREATININE - SERUM 0.9 mg/dL (0.6-1.3); POTASSIUM - SERUM 4.1 mmol/L (3.5-5.1); PROTEIN - SERUM 6.1 g/dL (6.4-8.2)
[2017-12-03 01:44] VITALS: BP 145/82
[2017-12-03 04:00] VITALS: BP 118/66
[2017-12-03 04:39] LABS: BASOPHILS 0.2 % (0-2); EOSINOPHILS 0 % (0-7); HEMATOCRIT 39.3 % (36.0-48.0); HEMOGLOBIN 12.8 g/dL (12-16); IMMATURE GRANULOCYTES 0.2 % (0-5); LYMPHOCYTES 13.5 % (15-50); MCH 30.5 pg (26.0-34.0); MCHC 32.6 g/dL (31.0-37.0); MCV 93.6 fL (80.0-100.0); MEAN PLATELET VOLUME 9.9 fL (7.4-10.4); MONOCYTES 7.8 % (2-11); NEUTROPHILS 78.3 % (40-80); PLATELET COUNT 227 10x3/uL (130-400); RDW 13.3 % (11.5-14.5)
[2017-12-03 04:50] LABS: ALBUMIN 2.1 g/dL (3.4-5.0); ALKALINE PHOSPHATASE 71 U/L (46-116); ALT (SGPT) 15 U/L (10-68); BILIRUBIN - TOTAL 0.47 mg/dL (0.2-1.3); CALC OSMOLALITY 272 mosm/kg (275-300); CALCIUM 8.6 mg/dL (8.5-10.1); CHLORIDE - SERUM 96 mmol/L (98-107); CREATININE - SERUM 0.8 mg/dL (0.6-1.3); GLUCOSE 235 mg/dL (74-106); POTASSIUM - SERUM 4.2 mmol/L (3.5-5.1); SODIUM 133 mmol/L (136-145); UREA NITROGEN 10 mg/dL (7-18); eGFR NON AFRICAN AMERICAN 76 mL/min (90-120)
[2017-12-03 08:35] VITALS: BP 134/75
[2017-12-03 12:30] VITALS: BP 119/64
[2017-12-03 16:45] VITALS: BP 137/86
[2017-12-03 22:07] VITALS: BP 136/72
[2017-12-04 02:03] VITALS: BP 142/78
[2017-12-04 04:55] LABS: BASOPHILS 0.2 % (0-2); EOSINOPHILS 0 % (0-7); HEMATOCRIT 37.8 % (36.0-48.0); HEMOGLOBIN 12.5 g/dL (12-16); IMMATURE GRANULOCYTES 0.5 % (0-5); LYMPHOCYTES 13.4 % (15-50); MCH 30.8 pg (26.0-34.0); MCHC 33.1 g/dL (31.0-37.0); MCV 93.1 fL (80.0-100.0); MEAN PLATELET VOLUME 9.6 fL (7.4-10.4); MONOCYTES 7.9 % (2-11); PLATELET COUNT 215 10x3/uL (130-400); RBC 4.06 10x6/uL (4.00-5.40); RDW 13.1 % (11.5-14.5); WBC 10.9 10x3/uL (4.8-10.8)
[2017-12-04 05:18] LABS: ALBUMIN 1.9 g/dL (3.4-5.0); ALKALINE PHOSPHATASE 66 U/L (46-116); ALT (SGPT) 14 U/L (10-68); CALCIUM 8.6 mg/dL (8.5-10.1); CARBON DIOXIDE 29.2 mmol/L (21.0-32.0); CHLORIDE - SERUM 98 mmol/L (98-107); CREATININE - SERUM 0.7 mg/dL (0.6-1.3); SODIUM 136 mmol/L (136-145); UREA NITROGEN 10 mg/dL (7-18); eGFR NON AFRICAN AMERICAN 89 mL/min (90-120)
[2017-12-04 05:20] LABS: CALC OSMOLALITY 269 mosm/kg (275-300); GLUCOSE 80 mg/dL (74-106); POTASSIUM - SERUM 3.5 mmol/L (3.5-5.1)
[2017-12-04 05:50] VITALS: BP 142/73
[2017-12-04 08:04] VITALS: BP 157/83
[2017-12-04 12:17] VITALS: BP 112/63
[2017-12-04 15:45] VITALS: BP 144/79
[2017-12-04 20:00] VITALS: BP 118/70
[2017-12-05] VITALS: BP 116/72
[2017-12-05 04:00] VITALS: BP 142/76
[2017-12-05 04:51] LABS: BASOPHILS 0.1 % (0-2); EOSINOPHILS 0 % (0-7); HEMATOCRIT 37.6 % (36.0-48.0); HEMOGLOBIN 12.4 g/dL (12-16); IMMATURE GRANULOCYTES 0.2 % (0-5); MCH 30.8 pg (26.0-34.0); MCV 93.3 fL (80.0-100.0); MEAN PLATELET VOLUME 9.5 fL (7.4-10.4); MONOCYTES 9.5 % (2-11); NEUTROPHILS 77.2 % (40-80); PLATELET COUNT 252 10x3/uL (130-400); RBC 4.03 10x6/uL (4.00-5.40); WBC 11.3 10x3/uL (4.8-10.8)
[2017-12-05 05:29] LABS: ALBUMIN 1.9 g/dL (3.4-5.0); ALKALINE PHOSPHATASE 88 U/L (46-116); ALT (SGPT) 15 U/L (10-68); CALC OSMOLALITY 266 mosm/kg (275-300); CALCIUM 8.7 mg/dL (8.5-10.1); CHLORIDE - SERUM 94 mmol/L (98-107); CREATININE - SERUM 0.7 mg/dL (0.6-1.3); GLUCOSE 92 mg/dL (74-106); POTASSIUM - SERUM 3.7 mmol/L (3.5-5.1); PROTEIN - SERUM 6.5 g/dL (6.4-8.2); SODIUM 132 mmol/L (136-145); UREA NITROGEN 17 mg/dL (7-18); eGFR NON AFRICAN AMERICAN 89 mL/min (90-120)
[2017-12-05 07:48] VITALS: BP 137/68
[2017-12-05] MEDS ORDERED: ULTRAM50 MG PO (07:50)
[2017-12-05] MEDS ORDERED: ELIQUIS2.5 MG PO (08:24)
[2017-12-05] MEDS ORDERED: BENADRYL50 MG PO (20:44)
== END 2017-12-05 19:48 | DRG 470 ==
LOC: D.ER 02:02 → D.MS 04:00
PROVIDERS: Emergency Medicine; Family Medicine; Orthopaedic Surgery
PROC: 0SRB0JZ Replacement of Left Hip Joint with Synthetic Substitute, Open Approach (ICD-10-PCS; principal; 2017-12-02 15:30)
DX: S72.142A Displaced intertrochanteric fracture of left femur, initial encounter for closed fracture (principal); N39.0 Urinary tract infection, site not specified; N17.9 Acute kidney failure, unspecified; E87.1 Hypo-osmolality and hyponatremia; W18.30XA Fall on same level, unspecified, initial encounter; E11.65 Type 2 diabetes mellitus with hyperglycemia; J43.9 Emphysema, unspecified; I10 Essential (primary) hypertension; F17.200 Nicotine dependence, unspecified, uncomplicated; G47.33 Obstructive sleep apnea (adult) (pediatric); M16.12 Unilateral primary osteoarthritis, left hip

== ENCOUNTER 2017-12-05 17:01 | Inpatient (IN) | payer MEDICARE ==
[~2017-12-05] VITALS: Ht 152.4 cm; Wt 81.6 kg
--- NOTE | ~2017-12-05 | RHP ---
PATIENT: MATTY DRAKE MEDICAL RECORD: [id number] ACCOUNT: [id number] LOCATION:[facility]1118 : 54 ADMISSION DATE: 12/05/17 REHABILITATION HISTORY AND PHYSICAL EXAMINATION POST ADMISSION PHYSICIAN EXAMINATION POST-ADMISSION PHYSICAL EXAMINATION AND HISTORY AND PHYSICAL DATE OF ADMISSION: 12/05/2017 ADMITTING DIAGNOSIS: Acute comminuted displaced intertrochanteric fracture of the left hip. HISTORY OF PRESENT ILLNESS: The patient admitted to inpatient rehab status post a left total hip arthroplasty for an acute comminuted displaced intertrochanteric left hip fracture secondary to a fall. She really has no idea why she fell. She reports a history of diabetes, hypertension, COPD, chronic renal failure, sleep apnea, frequent UTIs, chronic renal insufficiency, sleep apnea, hyperlipidemia, and she is an everyday smoker. On arrival to the ER, she was found to be hypoxic with an O2 sat of 88%, hyperglycemic with a blood sugar of 638, and had a white count of 17.6 with a positive urine. Chest x-ray shows mild emphysematous changes. Left hip x-ray showed an acute comminuted displaced intertrochanteric fracture of the left hip and severe osteoarthritis. She is admitted for IV antibiotics, supplemental O2, DuoNebs, fingerstick blood sugars, and ortho consult. On 12/02/2017, she underwent a ANDRE on her left hip. Postop was complicated by fever with a T-max of 101 and lethargy, blood sugars ranged from 638 to 51. She remains on O2 at 2 to 4 liters continuously. She has had prolonged immobility, progressive generalized weakness especially in her lower extremities causing her tolerance to PT to be low. She is very fatigued with limited flexion and extension of her lower extremities. Exercise capabilities decreased due to increased dyspnea on exertion. She is [id number] assist for ADLs, [id number] assist for sit to stand and bed to chair. She has ambulated 5 feet with a rolling walker, gait belt, and 50% assist from PT. She is highly motivated and has good family support to regain her strength and return back to home at her prior level of functioning where she was moderately independent with assistive device. She continues to drive herself and do all of her own shopping, errands, and home care. Comorbidities include diabetes, hypertension, COPD, post-procedural fever, closed hip fracture, chronic renal insufficiency, postop lethargy, leukocytosis, UTI, hyponatremia, hypoglycemia, restless legs, COPD, emphysema, recent falls, hyperlipidemia, and obstructive sleep apnea. PAST MEDICAL HISTORY: Significant for diabetes, COPD, and obstructive sleep apnea. PAST SURGICAL HISTORY: Includes 2 C-sections, carpal tunnel surgery. ALLERGIES: PENICILLIN. CURRENT MEDICATIONS: Include metformin 1000 mg b.i.d. with meals. She is on Benadryl 50 mg every 6 hours p.r.n., Ultram 50 mg every 4 hours, promethazine 25 mg every 4 hours p.r.n., Ativan 0.5 mg b.i.d. p.r.n., [place] 10/325 one tab every 6 hours p.r.n., Eliquis 2.5 mg b.i.d., albuterol updrafts as needed, and polyethylene glycol 17 grams in 8 ounces of water daily. HISTORY AND PHYSICAL [id number] MATTY DRAKE HABITS: Does have a history of tobacco use. FAMILY HISTORY: Noncontributory. SOCIAL HISTORY: The patient hopes to return back to home and get back to her prior level of functioning. REVIEW OF SYSTEMS: GENERAL: Does complain of weakness and fatigue. HEENT: Denies cold, cough, or congestion. CARDIOVASCULAR: Denies chest pain. LUNGS: Does complain of occasional shortness of breath. PHYSICAL EXAMINATION: VITAL SIGNS: Stable, afebrile. GENERAL: A somewhat obese female, in no acute distress upon exam. HEENT: Normocephalic and atraumatic. Mucosa moist. NECK: Supple. No lymphadenopathy. LUNGS: Coarse breath sounds bilaterally. CARDIOVASCULAR: Regular rate and rhythm. No murmurs, rubs, or gallops. ABDOMEN: Benign. EXTREMITIES: Consistent with postop surgery that appears to be within normal limits. NEUROLOGIC: Seems intact. LABORATORY DATA: Her white count is 10.2, H&H of 11.5 and 35.5, and platelet count was noted to be 280. Her sodium is 134, potassium 3.8, BUN and creatinine of 20 and 0.8, and blood sugar was noted to be 87. ASSESSMENT: This is a 67-year-old female patient admitted to rehab with a working diagnosis of status post left hip arthroplasty secondary to a comminuted fracture. The patient has potential to make improvement. We will institute the following multidisciplinary therapies including, but not limited to physical, occupational, respiratory, speech, nutritional services, prosthetics and orthotics. Given her complex condition and risk for more complications, rehabilitation services cannot be provided at a low level of care such as a long term facility. PLAN: 1. Admit to [facility] for intensive inpatient therapy to include the following disciplines: A. Physical therapy to improve gait, all transfer skills and bed mobility to a modified independent level. B. Occupational therapy to improve activities of daily living to a modified independent level. C. Case management to assist with discharge planning and placement options. D. Nutrition to assist with nutritional needs. E. Rehabilitation nursing to assist in monitoring the patient's underlying medical conditions and to assist with any type of bowel or bladder management. 2. The patient's current medication and medical care will be continued. 3. The patient will be placed on standard fall precautions. 4. The patient's estimated length of stay is approximately 7 to 10 days. 5. We will discuss this patient during care team staff meeting this week. TRANSINT:[id number] Voice Confirmation ID: [id number] DOCUMENT ID: [id number] HISTORY AND PHYSICAL [id number] MATTY DRAKE notes whether there has been none or any medical/functional change since admission: - No change since preadmission screen. MAINE attests patient continues to be appropriate for IRF: - Continues to be appropriate. KOFFI DORMAN MD at 1020 CC: [id number] DICTATION DATE: 12/06/17 0811 PANEL LAMINATOR: 12/06/17 0900 ADM IN [facility] [address] [id number]
[~2017-12-05 17:01] MED LIST changes: +ELIQUIS2.5 MG PO; +ULTRAM50 MG PO
[2017-12-05 20:23] VITALS: BP 117/66
[2017-12-05] MEDS ORDERED: BENADRYL50 MG PO (20:44)
[2017-12-06 05:58] LABS: BASOPHILS 0.2 % (0-2); EOSINOPHILS 0 % (0-7); HEMATOCRIT 35.5 % (36.0-48.0); HEMOGLOBIN 11.5 g/dL (12-16); IMMATURE GRANULOCYTES 0.2 % (0-5); LYMPHOCYTES 18.8 % (15-50); MCH 30.2 pg (26.0-34.0); MCHC 32.4 g/dL (31.0-37.0); MCV 93.2 fL (80.0-100.0); MEAN PLATELET VOLUME 9.7 fL (7.4-10.4); NEUTROPHILS 70.8 % (40-80); PLATELET COUNT 280 10x3/uL (130-400); RBC 3.81 10x6/uL (4.00-5.40); WBC 10.2 10x3/uL (4.8-10.8)
[2017-12-06 06:42] LABS: CALC OSMOLALITY 269 mosm/kg (275-300); CALCIUM 8.2 mg/dL (8.5-10.1); CARBON DIOXIDE 28.7 mmol/L (21.0-32.0); CHLORIDE - SERUM 97 mmol/L (98-107); CREATININE - SERUM 0.8 mg/dL (0.6-1.3); GLUCOSE 87 mg/dL (74-106); POTASSIUM - SERUM 3.8 mmol/L (3.5-5.1); SODIUM 134 mmol/L (136-145); UREA NITROGEN 20 mg/dL (7-18); eGFR NON AFRICAN AMERICAN 76 mL/min (90-120)
[2017-12-06 07:53] VITALS: BP 111/65
[2017-12-06 13:27] VITALS: Ht 152.4 cm; Wt 81.6 kg
[2017-12-06 19:00] VITALS: BP 115/59
[2017-12-07 08:43] VITALS: BP 118/65
[2017-12-07 20:00] VITALS: BP 138/60
[2017-12-08 08:06] VITALS: BP 145/82
[2017-12-08 19:14] VITALS: BP 151/79
[2017-12-09 06:54] LABS: CALC OSMOLALITY 281 mosm/kg (275-300); CALCIUM 8.9 mg/dL (8.5-10.1); CARBON DIOXIDE 26.7 mmol/L (21.0-32.0); CHLORIDE - SERUM 103 mmol/L (98-107); CREATININE - SERUM 0.7 mg/dL (0.6-1.3); GLUCOSE 114 mg/dL (74-106); POTASSIUM - SERUM 4.1 mmol/L (3.5-5.1); SODIUM 139 mmol/L (136-145); UREA NITROGEN 20 mg/dL (7-18); eGFR NON AFRICAN AMERICAN 89 mL/min (90-120)
[2017-12-09 07:04] LABS: BASOPHILS 0.3 % (0-2); EOSINOPHILS 0 % (0-7); HEMOGLOBIN 11.5 g/dL (12-16); IMMATURE GRANULOCYTES 0.8 % (0-5); LYMPHOCYTES 24.9 % (15-50); MCH 29.8 pg (26.0-34.0); MCHC 31.9 g/dL (31.0-37.0); MCV 93.3 fL (80.0-100.0); MEAN PLATELET VOLUME 9.1 fL (7.4-10.4); MONOCYTES 6.2 % (2-11); NEUTROPHILS 67.8 % (40-80); RBC 3.86 10x6/uL (4.00-5.40); RDW 13.3 % (11.5-14.5); WBC 9.5 10x3/uL (4.8-10.8)
[2017-12-09 07:07] LABS: PLATELET COUNT 430 10x3/uL (130-400)
[2017-12-09 07:45] VITALS: BP 133/73
[2017-12-09 19:45] VITALS: BP 140/73
[2017-12-10 08:08] VITALS: BP 130/88
[2017-12-10 20:50] VITALS: BP 131/74
[2017-12-11 07:17] LABS: BASOPHILS 0.3 % (0-2); EOSINOPHILS 0 % (0-7); HEMATOCRIT 36.1 % (36.0-48.0); HEMOGLOBIN 11.5 g/dL (12-16); IMMATURE GRANULOCYTES 0.9 % (0-5); LYMPHOCYTES 27.5 % (15-50); MCH 30.1 pg (26.0-34.0); MCHC 31.9 g/dL (31.0-37.0); MCV 94.5 fL (80.0-100.0); MONOCYTES 7.5 % (2-11); NEUTROPHILS 63.8 % (40-80); PLATELET COUNT 469 10x3/uL (130-400); RBC 3.82 10x6/uL (4.00-5.40); RDW 13.5 % (11.5-14.5); WBC 9.7 10x3/uL (4.8-10.8)
[2017-12-11 07:47] LABS: CALC OSMOLALITY 276 mosm/kg (275-300); CALCIUM 8.8 mg/dL (8.5-10.1); CARBON DIOXIDE 29.3 mmol/L (21.0-32.0); CHLORIDE - SERUM 101 mmol/L (98-107); CREATININE - SERUM 0.8 mg/dL (0.6-1.3); GLUCOSE 103 mg/dL (74-106); POTASSIUM - SERUM 4.1 mmol/L (3.5-5.1); SODIUM 137 mmol/L (136-145); UREA NITROGEN 22 mg/dL (7-18); eGFR NON AFRICAN AMERICAN 76 mL/min (90-120)
[2017-12-11 09:15] VITALS: BP 138/87
[2017-12-11 21:14] VITALS: BP 148/78
[2017-12-12 07:58] VITALS: BP 131/81
[2017-12-12 20:43] VITALS: BP 119/76
[2017-12-13 06:03] LABS: BASOPHILS 0.2 % (0-2); EOSINOPHILS 0 % (0-7); HEMATOCRIT 35.4 % (36.0-48.0); HEMOGLOBIN 11.4 g/dL (12-16); IMMATURE GRANULOCYTES 0.9 % (0-5); MCHC 32.2 g/dL (31.0-37.0); MCV 93.2 fL (80.0-100.0); MONOCYTES 6.4 % (2-11); NEUTROPHILS 67.5 % (40-80); PLATELET COUNT 480 10x3/uL (130-400); RDW 13.7 % (11.5-14.5); WBC 10.1 10x3/uL (4.8-10.8)
[2017-12-13 06:19] LABS: CALC OSMOLALITY 280 mosm/kg (275-300); CALCIUM 8.6 mg/dL (8.5-10.1); CARBON DIOXIDE 27.4 mmol/L (21.0-32.0); CHLORIDE - SERUM 103 mmol/L (98-107); CREATININE - SERUM 0.8 mg/dL (0.6-1.3); GLUCOSE 111 mg/dL (74-106); POTASSIUM - SERUM 4.1 mmol/L (3.5-5.1); SODIUM 138 mmol/L (136-145); UREA NITROGEN 23 mg/dL (7-18); eGFR NON AFRICAN AMERICAN 76 mL/min (90-120)
[2017-12-13 07:45] VITALS: BP 149/85
[2017-12-13 19:41] VITALS: BP 137/71
[2017-12-14 08:27] VITALS: BP 153/75
[2017-12-14 20:00] VITALS: BP 144/75
[2017-12-15 09:00] VITALS: BP 123/59
[2017-12-15 20:40] VITALS: BP 129/63
[2017-12-16 06:38] LABS: BASOPHILS 0.3 % (0-2); EOSINOPHILS 0 % (0-7); HEMATOCRIT 38.5 % (36.0-48.0); HEMOGLOBIN 12.1 g/dL (12-16); IMMATURE GRANULOCYTES 0.7 % (0-5); LYMPHOCYTES 26.6 % (15-50); MCH 29.9 pg (26.0-34.0); MCHC 31.4 g/dL (31.0-37.0); MCV 95.1 fL (80.0-100.0); MEAN PLATELET VOLUME 9.1 fL (7.4-10.4); MONOCYTES 5.9 % (2-11); NEUTROPHILS 66.5 % (40-80); PLATELET COUNT 475 10x3/uL (130-400); RBC 4.05 10x6/uL (4.00-5.40); RDW 13.8 % (11.5-14.5); WBC 12.5 10x3/uL (4.8-10.8)
[2017-12-16 07:17] LABS: CALC OSMOLALITY 277 mosm/kg (275-300); CALCIUM 8.4 mg/dL (8.5-10.1); CARBON DIOXIDE 29.9 mmol/L (21.0-32.0); CHLORIDE - SERUM 100 mmol/L (98-107); CREATININE - SERUM 0.8 mg/dL (0.6-1.3); GLUCOSE 120 mg/dL (74-106); POTASSIUM - SERUM 4.2 mmol/L (3.5-5.1); SODIUM 137 mmol/L (136-145); UREA NITROGEN 21 mg/dL (7-18); eGFR NON AFRICAN AMERICAN 76 mL/min (90-120)
[2017-12-16 12:53] VITALS: BP 143/65
[2017-12-16 20:35] VITALS: BP 105/63
[2017-12-17 13:00] VITALS: BP 117/62
[2017-12-17 19:45] VITALS: BP 117/68
[2017-12-18 06:41] LABS: BASOPHILS 0.3 % (0-2); EOSINOPHILS 0 % (0-7); HEMATOCRIT 38.7 % (36.0-48.0); HEMOGLOBIN 12.5 g/dL (12-16); IMMATURE GRANULOCYTES 0.5 % (0-5); LYMPHOCYTES 20.3 % (15-50); MCH 30.7 pg (26.0-34.0); MCHC 32.3 g/dL (31.0-37.0); MCV 95.1 fL (80.0-100.0); MEAN PLATELET VOLUME 9.3 fL (7.4-10.4); MONOCYTES 5.9 % (2-11); PLATELET COUNT 464 10x3/uL (130-400); RBC 4.07 10x6/uL (4.00-5.40); RDW 14.3 % (11.5-14.5)
[2017-12-18 06:49] LABS: CALC OSMOLALITY 280 mosm/kg (275-300); CALCIUM 8.9 mg/dL (8.5-10.1); CARBON DIOXIDE 30.2 mmol/L (21.0-32.0); CHLORIDE - SERUM 102 mmol/L (98-107); CREATININE - SERUM 0.8 mg/dL (0.6-1.3); GLUCOSE 78 mg/dL (74-106); POTASSIUM - SERUM 3.9 mmol/L (3.5-5.1); SODIUM 140 mmol/L (136-145); UREA NITROGEN 21 mg/dL (7-18); eGFR NON AFRICAN AMERICAN 76 mL/min (90-120)
[2017-12-18 07:46] VITALS: BP 127/61
[2017-12-18 19:46] VITALS: BP 136/71
[2017-12-19 08:00] VITALS: BP 143/68
== END 2017-12-19 08:35 | disposition home or self-care (01) | DRG 536 ==
LOC: D.REHAB 17:01
PROVIDERS: Emergency Medicine
DX: S72.002A Fracture of unspecified part of neck of left femur, initial encounter for closed fracture (principal); N39.0 Urinary tract infection, site not specified; E87.1 Hypo-osmolality and hyponatremia; J44.1 Chronic obstructive pulmonary disease with (acute) exacerbation; W19.XXXA Unspecified fall, initial encounter; E11.22 Type 2 diabetes mellitus with diabetic chronic kidney disease; I12.9 Hypertensive chronic kidney disease with stage 1 through stage 4 chronic kidney disease, or unspecified chronic kidney disease; N18.9 Chronic kidney disease, unspecified; D72.829 Elevated white blood cell count, unspecified; G25.81 Restless legs syndrome; J43.9 Emphysema, unspecified; E78.5 Hyperlipidemia, unspecified; G47.33 Obstructive sleep apnea (adult) (pediatric); F17.200 Nicotine dependence, unspecified, uncomplicated; Z96.642 Presence of left artificial hip joint; E11.40 Type 2 diabetes mellitus with diabetic neuropathy, unspecified; E11.65 Type 2 diabetes mellitus with hyperglycemia; R50.82 Postprocedural fever